=== PATIENT | male | born 1995 | race Caucasian/White ===

== ENCOUNTER 2018-12-15 12:30 | Emergency (ER) | payer OTHER ==
[2018-12-15 12:57] VITALS: BP 129/70
--- NOTE | 2018-12-15 13:38 | ED Physician Documentation ---
PD HPI HEENT - Stated complaint Stated Complaint: SORE THROAT - Chief complaint Chief Complaint: Heent - History obtained from History obtained from: Patient - History of Present Illness Timing - onset: Other (Sick for 2 days with sore throat, fever, body aches, diarrhea. His is also sick with a similar syndrome and she has positive strep test.) Review of Systems Constitutional: reports: Fever, Chills, Myalgias, Fatigue Ears: denies: Ear pain Nose: denies: Rhinorrhea / runny nose Throat: reports: Sore throat PD PAST MEDICAL HISTORY - Present Medications Home Medications: Ambulatory Orders Medication Instructions Recorded Confirmed Ondansetron Odt [Zofran] 4 mg TL Q6H PRN #10 tablet 12/15/18 Penicillin V Potassium 500 mg PO Q6HR #40 tablet 12/15/18 - Allergies Allergies/Adverse Reactions: Allergies Allergy/AdvReac Type Severity Reaction Status Date / Time No Known Drug Allergies Allergy Verified 12/15/18 12:39 PD ED PE NORMAL - Vitals Vital signs reviewed: Yes - General General: Alert and oriented X 3, No acute distress - HEENT HEENT: Other (Mildly red oropharynx, no exudates) - Neck Neck: Supple, no meningeal sign, No bony TTP - Cardiac Cardiac: RRR, No murmur - Respiratory Respiratory: No respiratory distress, Clear bilaterally - Abdomen Abdomen: Non tender - Back Back: No CVA TTP, No spinal TTP - Derm Derm: Normal color, Warm and dry, No rash - Neuro Neuro: Alert and oriented X 3, Normal speech Results - Vitals Vitals: Vital Signs - 24 hr 12/15/18 12:39 Temperature 36.5 C Heart Rate 75 Respiratory 16 Rate Blood Pressure 129/70 O2 Saturation 98 Oxygen O2 Source Room air - Labs Labs: Laboratory Tests 12/15/18 12:40 Group A Strep Rapid Negative PD MEDICAL DECISION MAKING - ED course ED course: His strep test is negative, but given that his 's is positive, they got sick at the same time, and their syndrome is similar, suspect his is false negative. Departure - Departure Disposition: 01 Home, Self Care Clinical Impression: Strep pharyngitis Condition: Good Record reviewed to determine appropriate education?: Yes Instructions: ED Strep Pharyngitis Poss Prescriptions: Penicillin V Potassium 500 mg PO Q6HR #40 tablet Ondansetron Odt [Zofran] 4 mg TL Q6H PRN #10 tablet PRN Reason: Nausea / Vomiting Comments: Return for new worsening symptoms. Push fluids. Ibuprofen as needed for the aches and pains. Follow-up with your doctor on Wednesday if not better. Forms: Activity restrictions
== END 2018-12-15 13:43 | disposition home or self-care (01) ==
LOC: ED 12:30
DX: J02.0 Streptococcal pharyngitis (principal)
CPT/HCPCS: 87070; 87430; 99283